=== PATIENT | female | born 2000 | race Caucasian/White ===

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

== ENCOUNTER → 2019-04-21 | Outpatient (CLI) | payer SELFPAY ==
--- NOTE | 2019-04-21 10:35 | REP ---
PELVIC ULTRASOUND: Real-time sonographic evaluation of the pelvis performed utilizing transabdominal technique. Bladder measures 7.0 x 5.1 x 8.8 cm. Uterus measures 6.7 x 3.3 x 4.6 cm. Endometrial thickness is 12 mm. There is no endometrial fluid collection. Right ovary measures 4.0 x 2.1 x 3.3 cm and left ovary 3.4 x 1.4 x 2.3 cm. There is a hemorrhagic follicle in the right ovary 2 cm in diameter. There is no other evidence of adnexal mass or free fluid. There is no torsion of either ovary, resistive index right ovary 0.47 and left ovary 0.50 with duplex Doppler evaluation. IMPRESSION: Complex dominant follicle right ovary 2 cm in diameter. No other evidence of adnexal mass or free fluid. No torsion. Electronically Signed by Chad Mabry MD 04/25/2019 09:40 A
== END ==
LOC: M RAD 08:56
PROVIDERS: ATTEND Physician Assistant
DX: N83.01 Follicular cyst of right ovary (principal)

== ENCOUNTER 2019-05-27 13:14 | Emergency (ER) | payer OTHER, SELFPAY ==
[~2019-05-27] VITALS: Ht 149.9 cm; Wt 62.7 kg
[2019-05-27 13:16] VITALS: BP 140/93
[2019-05-27] MEDS ORDERED: PENI500T PO (13:43)
== END 2019-05-27 13:51 | disposition home or self-care (01) ==
LOC: M ED 13:14
DX: K04.7 Periapical abscess without sinus (principal)

== ENCOUNTER → 2020-01-12 | Outpatient (CLI) | payer OTHER ==
[~2020-01-12] MED LIST: PENI500T PO
--- NOTE | 2020-01-12 16:37 | REP ---
CHEST, TWO VIEWS: There is no evidence of acute infiltrate. No pleural effusion is seen. The heart is normal in size. The mediastinal silhouette is unremarkable. The visualized osseous structures are intact. IMPRESSION: No acute pulmonary disease. Electronically Signed by Chad Mabry MD 01/12/2020 04:51 P
== END ==
LOC: M LRY 15:28
PROVIDERS: ATTEND Nurse Practitioner Family
DX: R05 Cough (principal)
CPT/HCPCS: 71046; G0463

== ENCOUNTER → 2024-07-03 | Outpatient (CLI) | payer OTHER | LOC: M WHC 12:51 | PROVIDERS: ATTEND Physician Assistant | DX: N64.52 Nipple discharge (principal) ==